=== PATIENT | female | born 1945 | race Caucasian/White ===

== ENCOUNTER 2018-10-02 22:08 | Observation (INO) ==
[2018-10-02] MEDS ORDERED: HYDROmorphone 2 MG/1 ML VIAL IV STA (22:57)
[2018-10-02] MEDS ORDERED: SODIUM CHLORIDE 0.9% 1,000 ML IV STA (22:57)
[2018-10-02] MEDS ORDERED: ONDANSETRON 4 MG/2 ML VIAL IV STA (22:57)
[2018-10-02] MEDS ORDERED: PANTOPRAZOLE 40 MG VIAL IV STA (22:57)
[2018-10-02 23:46] LABS: Basophils % 0.2 % (0.0-0.8); Eosinophils # 0.2 10*3/uL (0.0-0.87); Eosinophils % 2.7 % (0.00-10.9); Hematocrit 25.2 VOL% (35.7-47.0); Hemoglobin 7.6 GM/DL (12.0-16.0); Immature Granulocytes % 0.6 %; Immature Granulocytes Absolute 0.05 #; Lymphocytes # 0.9 10*3/uL (1.4-4.0); Lymphocytes % 10.3 % (21.3-54.2); Mean Corpuscular HGB Conc 30.2 GM/DL (32-36); Mean Corpuscular Volume 89.7 FL (87-102); Mean Platelet Volume 8.8 FL (9.6-12.0); Monocytes % 15.3 % (1.7-12.7); Neutrophils % 70.9 % (38.7-73.9); Platelet Count 645 T/CUMM (130-400); Red Blood Count 2.81 MC/CUMM (3.8-5.5); Red Cell Distribution Width 15.8 % (9.3-17.3)
[2018-10-03 00:27] LABS: Alanine Aminotransferase < 6 U/L (13-56); Albumin 2.4 G/DL (3.4-5.0); Alkaline Phosphatase 105 U/L (45-117); Amylase 13 U/L (25-115); Aspartate Amino Transferase 11 U/L (0-37); Bilirubin,Total < 0.39 MG/DL (0.2-1.0); Blood Urea Nitrogen 5 MG/DL (7-18); Calcium 9.1 MG/DL (8.5-10.1); Glucose 120 MG/DL (74-106); Osmolality,Calculated 270.8 MOS/KG (273-304); Total Protein 6.7 G/DL (6.4-8.3)
[2018-10-03] MEDS ORDERED: POTASSIUM CHLORIDE 20 MEQ TABLET PO STA (00:32)
[2018-10-03] MEDS ORDERED: MAGNESIUM SULF RIDER 2 GM in PREMIX 1 EACH IV STA (00:32)
[2018-10-03 00:44] LABS: Apearance,Urine CLEAR (Clear); Bilirubin,Urine Negative (Negative); Blood, Urine Negative (Negative); Glucose,Urine (UA) Negative (Negative); Ketones,Urine Negative (Negative); Nitrite,Urine Negative (Negative); Protein,Urine Negative; RBC,Urine 3 /HPF (0-4); Squamous Epithelial Cell,Urine Occasional /HPF (0-10); Urine Color Straw (Yellow); Urine Specific Gravity 1.059 (1.001-1.035); Urine Urobilinogen < 2.0 EU/DL (0.2-1.0); WBC,Urine 2 /HPF (0-6)
[2018-10-03] MEDS: SODIUM CHLORIDE 0.9% 1,000 ML IV SCH ×2 (05:29→18:06)
[2018-10-03] MEDS: metroNIDAZOLE INJ 500 MG in PREMIX 1 EACH IV SCH ×4 (05:30→21:03)
[2018-10-03] MEDS: HYDROmorphone 2 MG/1 ML VIAL IV PRN ×2 (06:10→12:47)
[2018-10-03] MEDS: CIPROFLOXACIN INJ 400 MG in PREMIX 1 EACH IV SCH ×2 (06:30→15:56)
[2018-10-03 07:06] LABS: Basophils % 0.1 % (0.0-0.8); Eosinophils # 0.3 10*3/uL (0.0-0.87); Eosinophils % 3.9 % (0.00-10.9); Hematocrit 20.2 VOL% (35.7-47.0); Immature Granulocytes % 0.7 %; Immature Granulocytes Absolute 0.05 #; Lymphocytes # 0.8 10*3/uL (1.4-4.0); Lymphocytes % 10.9 % (21.3-54.2); Mean Corpuscular HGB Conc 31.2 GM/DL (32-36); Mean Corpuscular Volume 88.6 FL (87-102); Mean Platelet Volume 8.8 FL (9.6-12.0); Monocytes % 15.4 % (1.7-12.7); NRBC # 0.02 10*3/uL; Platelet Count 553 T/CUMM (130-400); Red Blood Count 2.28 MC/CUMM (3.8-5.5); Red Cell Distribution Width 15.9 % (9.3-17.3)
[2018-10-03 07:14] LABS: Hemoglobin 6.3 GM/DL (12.0-16.0)
[2018-10-03 07:32] LABS: Hypochromasia 1+; Platelet Estimate Increased
[2018-10-03 07:35] LABS: Alanine Aminotransferase < 6 U/L (13-56); Albumin 2.1 G/DL (3.4-5.0); Alkaline Phosphatase 84 U/L (45-117); Aspartate Amino Transferase 9 U/L (0-37); Bilirubin,Total < 0.39 MG/DL (0.2-1.0); Blood Urea Nitrogen 4 MG/DL (7-18); Calcium 8.1 MG/DL (8.5-10.1); Glucose 113 MG/DL (74-106); Osmolality,Calculated 272.7 MOS/KG (273-304); Total Protein 5.5 G/DL (6.4-8.3)
[2018-10-03] MEDS: PANTOPRAZOLE 40 MG TABLET PO SCH (09:12)
[2018-10-03] MEDS: POTASSIUM CHLORIDE 20 MEQ TABLET PO PRN ×4 (09:14→18:25)
[2018-10-03] MEDS ORDERED: oxyCODONE IR 5 MG TABLET PO PRN (09:19)
[2018-10-03] MEDS ORDERED: diphenhydrAMINE CAP 25 MG CAPSULE PO PRN (09:19)
[2018-10-03] MEDS ORDERED: MAGNESIUM SULF RIDER 2 GM in PREMIX 1 EACH IV PRN (09:22)
[2018-10-03] MEDS ORDERED: MAGNESIUM SULF RIDER 4 GM in PREMIX 1 EACH IV PRN (09:22)
[2018-10-03] MEDS ORDERED: SODIUM CHLORIDE 0.9% 1,000 ML IV PRN (09:23)
[2018-10-03] MEDS ORDERED: ERGOCALCIFEROL 50,000 UNIT CAPSULE PO SCH (09:30)
[2018-10-03 09:47] LABS: % Iron Saturation 12.5 % (18-50); Ferritin 162.3 ng/ml (8-252)
[2018-10-03] MEDS: ONDANSETRON 4 MG/2 ML VIAL IV PRN ×2 (12:47→20:55)
[2018-10-03 20:02] LABS: Hematocrit 29.8 VOL% (35.7-47.0)
[2018-10-03 20:03] LABS: Hemoglobin 9.2 GM/DL (12.0-16.0)
[2018-10-03] MEDS: CARBIDOPA/LEVODOPA 25-250 MG TABLET PO SCH (20:52)
[2018-10-04 01:35] LABS: Basophils % 0.3 % (0.0-0.8); Eosinophils # 0.3 10*3/uL (0.0-0.87); Eosinophils % 2.8 % (0.00-10.9); Hematocrit 27.2 VOL% (35.7-47.0); Hemoglobin 8.7 GM/DL (12.0-16.0); Immature Granulocytes % 3.3 %; Immature Granulocytes Absolute 0.29 #; Lymphocytes # 0.7 10*3/uL (1.4-4.0); Mean Corpuscular Volume 85.3 FL (87-102); Mean Platelet Volume 9.1 FL (9.6-12.0); Monocytes % 15.1 % (1.7-12.7); NRBC # 0.03 10*3/uL; Neutrophils % 70.5 % (38.7-73.9); Platelet Count 590 T/CUMM (130-400); Red Blood Count 3.19 MC/CUMM (3.8-5.5); Red Cell Distribution Width 17.7 % (9.3-17.3); White Blood Count 8.9 T/CUMM (4-12)
[2018-10-04 01:55] LABS: Calcium 8.2 MG/DL (8.5-10.1); Osmolality,Calculated 276.4 MOS/KG (273-304)
[2018-10-04] MEDS: CIPROFLOXACIN INJ 400 MG in PREMIX 1 EACH IV SCH ×2 (03:28→15:45)
[2018-10-04] MEDS: SODIUM CHLORIDE 0.9% 1,000 ML IV SCH ×3 (03:29→21:36)
[2018-10-04] MEDS: metroNIDAZOLE INJ 500 MG in PREMIX 1 EACH IV SCH ×4 (05:32→23:15)
[2018-10-04] MEDS: CARBIDOPA/LEVODOPA 25-250 MG TABLET PO SCH ×3 (09:16→21:38)
[2018-10-04] MEDS: BISACODYL 5 MG TABLET PO SCH ×2 (09:16→16:36)
[2018-10-04] MEDS: PANTOPRAZOLE 40 MG TABLET PO SCH (09:16)
[2018-10-04] MEDS: ESTRADIOL 2 MG TABLET PO SCH (09:16)
[2018-10-04] MEDS: SUCRALFATE 1 GM TABLET PO SCH (09:16)
[2018-10-04] MEDS ORDERED: PROPOFOL 200 MG/20 ML VIAL IV ONE ×2 (10:00)
[2018-10-04] MEDS ORDERED: LIDOCAINE 2% 5 ML VIAL ONE ×2 (10:00)
[2018-10-04] MEDS: METOCLOPRAMIDE 10 MG/2 ML VIAL IV SCH ×3 (13:17→23:14)
[2018-10-04 16:58] LABS: Hematocrit 27.9 VOL% (35.7-47.0); Hemoglobin 8.7 GM/DL (12.0-16.0)
[2018-10-04] MEDS ORDERED: POLYETHYLENE GLYCOL POWDER 255 GM BOTTLE PO ONE (18:00)
[2018-10-04] MEDS ORDERED: MAGNESIUM CITRATE 300 ML BOTTLE PO ONE (21:00)
[2018-10-04 22:46] LABS: Calcium 8.3 MG/DL (8.5-10.1); Osmolality,Calculated 275.4 MOS/KG (273-304)
[2018-10-04] MEDS ORDERED: POTASSIUM CHLORIDE RIDER 10 MEQ in PREMIX 1 EACH IV PRN (23:53)
[2018-10-05] MEDS: BISACODYL 5 MG TABLET PO SCH
[2018-10-05] MEDS: POTASSIUM CHLORIDE 20 MEQ TABLET PO PRN (00:19)
[2018-10-05] MEDS: POTASSIUM CHLORIDE RIDER 10 MEQ in PREMIX 1 EACH IV PRN ×5 (00:19→04:24)
[2018-10-05 01:30] LABS: Basophils % 0.5 % (0.0-0.8); Eosinophils # 0.2 10*3/uL (0.0-0.87); Eosinophils % 2.1 % (0.00-10.9); Hematocrit 27.1 VOL% (35.7-47.0); Hemoglobin 8.5 GM/DL (12.0-16.0); Immature Granulocytes % 2.1 %; Immature Granulocytes Absolute 0.18 #; Lymphocytes # 0.7 10*3/uL (1.4-4.0); Lymphocytes % 7.9 % (21.3-54.2); Mean Corpuscular HGB Conc 31.4 GM/DL (32-36); Mean Corpuscular Volume 85.5 FL (87-102); Monocytes % 13.6 % (1.7-12.7); NRBC # 0.02 10*3/uL; Neutrophils % 73.8 % (38.7-73.9); Platelet Count 541 T/CUMM (130-400); Red Blood Count 3.17 MC/CUMM (3.8-5.5); Red Cell Distribution Width 18.2 % (9.3-17.3); White Blood Count 8.4 T/CUMM (4-12)
[2018-10-05] MEDS: CIPROFLOXACIN INJ 400 MG in PREMIX 1 EACH IV SCH (04:12)
[2018-10-05] MEDS: SODIUM CHLORIDE 0.9% 1,000 ML IV SCH ×3 (05:24→16:50)
[2018-10-05] MEDS: metroNIDAZOLE INJ 500 MG in PREMIX 1 EACH IV SCH ×3 (05:50→16:25)
[2018-10-05] MEDS: METOCLOPRAMIDE 10 MG/2 ML VIAL IV SCH (05:59)
[2018-10-05 07:34] LABS: Hematocrit 30.7 VOL% (35.7-47.0); Hemoglobin 9.7 GM/DL (12.0-16.0)
[2018-10-05] MEDS ORDERED: PROPOFOL 200 MG/20 ML VIAL IV ONE (09:00)
[2018-10-05] MEDS ORDERED: LIDOCAINE 1% 5 ML VIAL ONE (09:00)
[2018-10-05] MEDS ORDERED: ONDANSETRON 4 MG/2 ML VIAL ONE (09:00)
[2018-10-05] MEDS: PANTOPRAZOLE 40 MG TABLET PO SCH (10:22)
[2018-10-05] MEDS: SUCRALFATE 1 GM TABLET PO SCH (10:22)
[2018-10-05] MEDS: CARBIDOPA/LEVODOPA 25-250 MG TABLET PO SCH (10:22)
[2018-10-05] MEDS: RIFAXIMIN 550 MG TABLET PO SCH ×2 (10:22→15:05)
[2018-10-05] MEDS: ESTRADIOL 2 MG TABLET PO SCH (10:23)
[2018-10-05 11:57] VITALS: BP 125/61
== END 2018-10-05 16:50 | disposition home or self-care (01) ==
LOC: N.EDINP 22:08 → N.ED 22:08 → N.4E 10-03 03:51
PROVIDERS: ADMIT Internal Medicine; ATTEND Internal Medicine
PROC: COLONBX (2018-10-05 08:35)

== ENCOUNTER 2019-03-11 14:33 | Inpatient (IN) ==
[2019-03-11] MEDS ORDERED: SODIUM CHLORIDE 0.9% 500 ML IV STA (16:27)
[2019-03-11 17:38] LABS: Basophils % 0.3 % (0.0-0.8); Eosinophils % 0.1 % (0.00-10.9); Hematocrit 28.4 VOL% (35.7-47.0); Hemoglobin 8.8 GM/DL (12.0-16.0); Immature Granulocytes % 0.7 %; Immature Granulocytes Absolute 0.05 #; Lymphocytes # 0.8 10*3/uL (1.4-4.0); Lymphocytes % 10.8 % (21.3-54.2); Mean Corpuscular Volume 94.4 FL (87-102); Mean Platelet Volume 8.5 FL (9.6-12.0); Monocytes % 10.9 % (1.7-12.7); Neutrophils % 77.2 % (38.7-73.9); Platelet Count 688 T/CUMM (130-400); Red Blood Count 3.01 MC/CUMM (3.8-5.5); Red Cell Distribution Width 15.9 % (9.3-17.3)
[2019-03-11 18:02] LABS: Alanine Aminotransferase < 9 U/L (13-56); Alkaline Phosphatase 127 U/L (45-117); Aspartate Amino Transferase 19 U/L (0-37); Bilirubin,Total < 0.39 MG/DL (0.2-1.0); Blood Urea Nitrogen 21 MG/DL (7-18); Calcium 8.4 MG/DL (8.5-10.1); Estimated Glom Filtration Rate 62 ML/MIN; Glucose 81 MG/DL (74-106); Total Protein 5.8 G/DL (6.4-8.3)
[2019-03-11 18:28] LABS: Apearance,Urine Slightly Hazy (Clear); Bacteria,Urine Occasional /HPF (Few); Bilirubin,Urine Negative (Negative); Blood, Urine Small mg/dL (Negative); Glucose,Urine (UA) Negative (Negative); Hyaline Casts,Urine 13 /LPF (0-3); Ketones,Urine 5 mg/dL (Negative); Mucus,Urine Occasional /LPF (Occasional); Nitrite,Urine Negative (Negative); Protein,Urine Negative; RBC,Urine 5 /HPF (0-4); Squamous Epithelial Cell,Urine Occasional /HPF (0-10); Urine Color Amber (Yellow); Urine Specific Gravity 1.018 (1.001-1.035); Urine Urobilinogen < 2.0 EU/DL (0.2-1.0); WBC,Urine 36 /HPF (0-6)
[2019-03-11] MEDS ORDERED: LEVOFLOXACIN INJ 750 MG in PREMIX 1 EACH IV STA (18:47)
[2019-03-11] MEDS ORDERED: LEVOFLOXACIN INJ 150 ML IV ONE (19:20)
[2019-03-11] MEDS: DEXTROSE 5% NACL 0.45% 1,000 ML IV SCH (21:56)
[2019-03-11] MEDS: ONDANSETRON 4 MG/2 ML VIAL IV PRN (21:57)
[2019-03-11] MEDS: HYDROmorphone 2 MG/1 ML VIAL IV PRN (21:57)
[2019-03-11] MEDS: PANTOPRAZOLE 40 MG VIAL IV SCH (21:57)
[2019-03-11] MEDS: ENOXAPARIN 40 MG/0.4 ML SYRINGE SUBCUT SCH (21:58)
[2019-03-12 06:11] LABS: Basophils % 0.6 % (0.0-0.8); Eosinophils # 0.1 10*3/uL (0.0-0.87); Eosinophils % 0.9 % (0.00-10.9); Hematocrit 26.1 VOL% (35.7-47.0); Immature Granulocytes % 0.6 %; Immature Granulocytes Absolute 0.04 #; Lymphocytes # 0.9 10*3/uL (1.4-4.0); Mean Corpuscular HGB Conc 30.7 GM/DL (32-36); Mean Platelet Volume 8.7 FL (9.6-12.0); Monocytes % 16.9 % (1.7-12.7); Platelet Count 628 T/CUMM (130-400); Red Blood Count 2.69 MC/CUMM (3.8-5.5); Red Cell Distribution Width 15.9 % (9.3-17.3); White Blood Count 6.6 T/CUMM (4-12)
[2019-03-12 06:21] LABS: Alanine Aminotransferase 11 U/L (13-56); Albumin 1.8 G/DL (3.4-5.0); Alkaline Phosphatase 107 U/L (45-117); Aspartate Amino Transferase 20 U/L (0-37); Bilirubin,Total < 0.39 MG/DL (0.2-1.0); Blood Urea Nitrogen 18 MG/DL (7-18); Estimated Glom Filtration Rate 73 ML/MIN; Glucose 84 MG/DL (74-106); Osmolality,Calculated 275.7 MOS/KG (273-304); Total Protein 5.4 G/DL (6.4-8.3)
[2019-03-12 06:22] LABS: Ferritin 309.7 ng/ml (8-252)
[2019-03-12 06:29] LABS: Carcinoembryonic Antigen 64.2 NG/ML (0.0-5.0); Folate 10.4 NG/ML (5.4-24.0); Vitamin B12 1054 PG/ML (211-911)
[2019-03-12 06:37] LABS: Eosinophils 1 % (0-10); Hypochromasia 1+; Lymphocytes 6 % (20-55); Ovalocytes Slight; Platelet Estimate Increased; Segmented Neutrophils 83 % (50-85); Total Cells Counted 100
[2019-03-12] MEDS: ONDANSETRON 4 MG/2 ML VIAL IV PRN ×2 (07:09→16:05)
[2019-03-12] MEDS ORDERED: MAGNESIUM SULF RIDER 4 GM in PREMIX 1 EACH IV ONE (07:47)
[2019-03-12 08:24] LABS: Sedimentation Rate-Westergren 40 MM/HR (0-30)
[2019-03-12] MEDS: DEXTROSE 5% NACL 0.45% 1,000 ML IV SCH (08:52)
[2019-03-12] MEDS: PANTOPRAZOLE 40 MG VIAL IV SCH ×2 (08:54→21:53)
[2019-03-12] MEDS ORDERED: IRON SUCROSE 300 MG in SODIUM CHLORIDE 0.9% 100 ML IV ONE (09:11)
[2019-03-12 09:44] LABS: Hemoglobin A1 (Alkaline) 97.8 % (96.5-98.5); Hemoglobin A2 (Alkaline) 2.2 % (1.5-3.5)
[2019-03-12] MEDS: HYDROmorphone 2 MG/1 ML VIAL IV PRN ×2 (13:20→23:15)
[2019-03-12] MEDS: LEVOFLOXACIN INJ 500 MG in PREMIX 1 EACH IV SCH (21:53)
[2019-03-12] MEDS: ENOXAPARIN 40 MG/0.4 ML SYRINGE SUBCUT SCH (21:59)
[2019-03-13] MEDS: DEXTROSE 5% NACL 0.45% 1,000 ML IV SCH ×2 (00:13→02:09)
[2019-03-13 03:50] LABS: Basophils % 0.2 % (0.0-0.8); Eosinophils % 0.3 % (0.00-10.9); Hemoglobin 7.5 GM/DL (12.0-16.0); Immature Granulocytes % 0.4 %; Immature Granulocytes Absolute 0.04 #; Lymphocytes # 0.8 10*3/uL (1.4-4.0); Lymphocytes % 8.4 % (21.3-54.2); Mean Corpuscular HGB Conc 31.3 GM/DL (32-36); Mean Corpuscular Volume 94.5 FL (87-102); Mean Platelet Volume 8.8 FL (9.6-12.0); Monocytes % 10.4 % (1.7-12.7); Neutrophils % 80.3 % (38.7-73.9); Platelet Count 574 T/CUMM (130-400); Red Blood Count 2.54 MC/CUMM (3.8-5.5); Red Cell Distribution Width 16.1 % (9.3-17.3); White Blood Count 9.5 T/CUMM (4-12)
[2019-03-13 04:17] LABS: Calcium 7.8 MG/DL (8.5-10.1); Osmolality,Calculated 278.7 MOS/KG (273-304)
[2019-03-13 04:22] LABS: Albumin 1.9 G/DL (3.4-5.0); Bilirubin,Total 0.7 MG/DL (0.2-1.0); Calcium 6.5 MG/DL (8.5-10.1); Osmolality,Calculated 277.7 MOS/KG (273-304); Total Protein 5.3 G/DL (6.4-8.3)
[2019-03-13] MEDS ORDERED: SODIUM CHLORIDE 0.9% 1,000 ML IV PRN (06:17)
[2019-03-13] MEDS: ONDANSETRON 4 MG/2 ML VIAL IV PRN (07:37)
[2019-03-13] MEDS: PANTOPRAZOLE 40 MG VIAL IV SCH ×2 (09:44→21:25)
[2019-03-13] MEDS: HYDROmorphone 2 MG/1 ML VIAL IV PRN ×2 (13:04→21:38)
[2019-03-13] MEDS: MULTIVITAMIN INJ 10 ML, TRACE ELEMENTS (5) 1 ML in AMINO ACIDS/DEXT/LYTES 4.25-5% 2,000 ML IV SCH (17:51)
[2019-03-13] MEDS: FAT EMULSION 20% 250 ML IV SCH (17:51)
[2019-03-13] MEDS: LEVOFLOXACIN INJ 500 MG in PREMIX 1 EACH IV SCH (21:28)
[2019-03-14] MEDS: ENOXAPARIN 40 MG/0.4 ML SYRINGE SUBCUT SCH ×2 (01:02→21:36)
[2019-03-14 04:44] LABS: Basophils % 0.2 % (0.0-0.8); Eosinophils # 0.1 10*3/uL (0.0-0.87); Eosinophils % 1.3 % (0.00-10.9); Hematocrit 33.2 VOL% (35.7-47.0); Hemoglobin 10.8 GM/DL (12.0-16.0); Immature Granulocytes % 0.5 %; Immature Granulocytes Absolute 0.04 #; Lymphocytes # 0.7 10*3/uL (1.4-4.0); Lymphocytes % 8.2 % (21.3-54.2); Mean Corpuscular HGB Conc 32.5 GM/DL (32-36); Mean Corpuscular Volume 91.2 FL (87-102); Mean Platelet Volume 8.5 FL (9.6-12.0); Monocytes % 10.5 % (1.7-12.7); NRBC # 0.02 10*3/uL; Neutrophils % 79.3 % (38.7-73.9); Platelet Count 396 T/CUMM (130-400); Red Blood Count 3.64 MC/CUMM (3.8-5.5); Red Cell Distribution Width 15.4 % (9.3-17.3); White Blood Count 8.6 T/CUMM (4-12)
[2019-03-14 05:15] LABS: Alanine Aminotransferase < 9 U/L (13-56); Albumin 1.7 G/DL (3.4-5.0); Alkaline Phosphatase 99 U/L (45-117); Aspartate Amino Transferase 17 U/L (0-37); Blood Urea Nitrogen 13 MG/DL (7-18); Calcium 8.2 MG/DL (8.5-10.1); Estimated Glom Filtration Rate 77 ML/MIN; Glucose 79 MG/DL (74-106); Osmolality,Calculated 275.5 MOS/KG (273-304)
[2019-03-14] MEDS: POTASSIUM CHLORIDE RIDER 10 MEQ in PREMIX 1 EACH IV SCH ×5 (08:46→15:11)
[2019-03-14] MEDS: PANTOPRAZOLE 40 MG VIAL IV SCH ×2 (08:46→21:37)
[2019-03-14] MEDS: DEXT 5% NACL 0.45% KCL 40 MEQ 40 MEQ/1,000 ML BAG IV SCH (08:46)
[2019-03-14] MEDS: DEXTROSE 5% NACL 0.45% 1,000 ML IV SCH (10:00)
[2019-03-14] MEDS: MULTIVITAMIN INJ 10 ML, TRACE ELEMENTS (5) 1 ML in AMINO ACIDS/DEXT/LYTES 4.25-5% 2,000 ML IV SCH (17:28)
[2019-03-14] MEDS: HYDROmorphone 2 MG/1 ML VIAL IV PRN (18:09)
[2019-03-14] MEDS: LEVOFLOXACIN INJ 500 MG in PREMIX 1 EACH IV SCH (20:59)
[2019-03-15] MEDS: HYDROmorphone 2 MG/1 ML VIAL IV PRN ×4 (02:00→21:30)
[2019-03-15 05:27] LABS: Basophils % 0.2 % (0.0-0.8); Eosinophils # 0.1 10*3/uL (0.0-0.87); Eosinophils % 0.9 % (0.00-10.9); Hematocrit 36.5 VOL% (35.7-47.0); Hemoglobin 11.5 GM/DL (12.0-16.0); Immature Granulocytes % 0.8 %; Immature Granulocytes Absolute 0.07 #; Lymphocytes # 0.8 10*3/uL (1.4-4.0); Lymphocytes % 9.1 % (21.3-54.2); Mean Corpuscular HGB Conc 31.5 GM/DL (32-36); Mean Corpuscular Volume 93.6 FL (87-102); Mean Platelet Volume 8.7 FL (9.6-12.0); Monocytes % 10.1 % (1.7-12.7); Neutrophils % 78.9 % (38.7-73.9); Platelet Count 408 T/CUMM (130-400); Red Cell Distribution Width 15.5 % (9.3-17.3); White Blood Count 9.1 T/CUMM (4-12)
[2019-03-15 05:55] LABS: Albumin 1.8 G/DL (3.4-5.0); Bilirubin,Total 0.6 MG/DL (0.2-1.0); Calcium 8.4 MG/DL (8.5-10.1); Total Protein 5.4 G/DL (6.4-8.3)
[2019-03-15 06:08] LABS: Calcium 8.5 MG/DL (8.5-10.1); Osmolality,Calculated 268.2 MOS/KG (273-304); Prealbumin 5.3 MG/DL (20-40)
[2019-03-15] MEDS: DEXT 5% NACL 0.45% KCL 40 MEQ 40 MEQ/1,000 ML BAG IV SCH ×2 (09:11→09:20)
[2019-03-15] MEDS: FAT EMULSION 20% 250 ML IV SCH ×2 (09:18→15:27)
[2019-03-15] MEDS: PANTOPRAZOLE 40 MG VIAL IV SCH ×2 (09:19→21:26)
[2019-03-15] MEDS ORDERED: MAGNESIUM SULF RIDER 2 GM in PREMIX 1 EACH IV ONE (10:23)
[2019-03-15] MEDS: TRACE ELEMENTS (5) 1 ML, MULTIVITAMIN INJ 10 ML in AMINO ACIDS/DEXT/LYTES 5-15% 2,000 ML IV SCH ×2 (15:29→16:14)
[2019-03-15] MEDS ORDERED: fentaNYL 12 MCG/HR PATCH TRANSDERM SCH (16:00)
[2019-03-15] MEDS: ONDANSETRON 4 MG/2 ML VIAL IV PRN (21:30)
[2019-03-15] MEDS: ENOXAPARIN 40 MG/0.4 ML SYRINGE SUBCUT SCH (21:33)
[2019-03-15] MEDS: LEVOFLOXACIN INJ 500 MG in PREMIX 1 EACH IV SCH (21:34)
[2019-03-16 07:01] LABS: Basophils % 0.2 % (0.0-0.8); Eosinophils # 0.1 10*3/uL (0.0-0.87); Eosinophils % 0.7 % (0.00-10.9); Hematocrit 33.8 VOL% (35.7-47.0); Hemoglobin 10.7 GM/DL (12.0-16.0); Immature Granulocytes % 0.6 %; Immature Granulocytes Absolute 0.05 #; Lymphocytes # 0.6 10*3/uL (1.4-4.0); Lymphocytes % 7.5 % (21.3-54.2); Mean Corpuscular HGB Conc 31.7 GM/DL (32-36); Mean Corpuscular Volume 93.1 FL (87-102); Mean Platelet Volume 8.8 FL (9.6-12.0); Monocytes % 15.1 % (1.7-12.7); Neutrophils % 75.9 % (38.7-73.9); Platelet Count 337 T/CUMM (130-400); Red Blood Count 3.63 MC/CUMM (3.8-5.5); Red Cell Distribution Width 15.3 % (9.3-17.3); White Blood Count 8.2 T/CUMM (4-12)
[2019-03-16 07:26] LABS: Alanine Aminotransferase < 6 U/L (13-56); Albumin 1.5 G/DL (3.4-5.0); Alkaline Phosphatase 86 U/L (45-117); Aspartate Amino Transferase 14 U/L (0-37); Bilirubin,Total < 0.39 MG/DL (0.2-1.0); Blood Urea Nitrogen 18 MG/DL (7-18); Calcium 8.2 MG/DL (8.5-10.1); Estimated Glom Filtration Rate 82 ML/MIN; Glucose 127 MG/DL (74-106); Osmolality,Calculated 271.2 MOS/KG (273-304)
[2019-03-16] MEDS: HYDROmorphone 2 MG/1 ML VIAL IV PRN ×3 (08:13→21:10)
[2019-03-16] MEDS ORDERED: LORazepam 2 MG/1 ML VIAL IV ONE (08:49)
[2019-03-16] MEDS ORDERED: LORazepam 2 MG/1 ML VIAL IV PRN ×2 (08:49→16:29)
[2019-03-16] MEDS: DEXT 5% NACL 0.45% KCL 40 MEQ 40 MEQ/1,000 ML BAG IV SCH ×2 (09:09→14:05)
[2019-03-16] MEDS: PANTOPRAZOLE 40 MG VIAL IV SCH ×2 (09:13→20:50)
[2019-03-16] MEDS: FAT EMULSION 20% 250 ML IV SCH (13:43)
[2019-03-16] MEDS: TRACE ELEMENTS (5) 1 ML, MULTIVITAMIN INJ 10 ML in AMINO ACIDS/DEXT/LYTES 5-15% 2,000 ML IV SCH (16:20)
[2019-03-16] MEDS: LEVOFLOXACIN INJ 500 MG in PREMIX 1 EACH IV SCH (20:49)
[2019-03-16] MEDS: ENOXAPARIN 40 MG/0.4 ML SYRINGE SUBCUT SCH (21:09)
[2019-03-17] MEDS: HYDROmorphone 2 MG/1 ML VIAL IV PRN ×3 (02:41→21:28)
[2019-03-17 06:05] LABS: Basophils % 0.3 % (0.0-0.8); Eosinophils # 0.1 10*3/uL (0.0-0.87); Eosinophils % 0.7 % (0.00-10.9); Hematocrit 33.4 VOL% (35.7-47.0); Hemoglobin 10.6 GM/DL (12.0-16.0); Immature Granulocytes % 0.9 %; Immature Granulocytes Absolute 0.08 #; Lymphocytes # 0.7 10*3/uL (1.4-4.0); Lymphocytes % 7.1 % (21.3-54.2); Mean Corpuscular HGB Conc 31.7 GM/DL (32-36); Mean Corpuscular Volume 94.9 FL (87-102); Mean Platelet Volume 9.6 FL (9.6-12.0); Platelet Count 211 T/CUMM (130-400); Red Blood Count 3.52 MC/CUMM (3.8-5.5); Red Cell Distribution Width 15.2 % (9.3-17.3); White Blood Count 9.2 T/CUMM (4-12)
[2019-03-17 06:56] LABS: Total Cells Counted 100
[2019-03-17 06:59] LABS: Eosinophils 2 % (0-10); Lymphocytes 10 % (20-55); Platelet Estimate Normal; Segmented Neutrophils 73 % (50-85)
[2019-03-17 07:00] LABS: Hypochromasia Slight
[2019-03-17 07:02] LABS: Alkaline Phosphatase 87 U/L (45-117); Calcium 7.9 MG/DL (8.5-10.1)
[2019-03-17 07:03] LABS: Alanine Aminotransferase < 9 U/L (13-56); Albumin 1.5 G/DL (3.4-5.0); Aspartate Amino Transferase 16 U/L (0-37); Bilirubin,Total < 0.39 MG/DL (0.2-1.0); Blood Urea Nitrogen 19 MG/DL (7-18); Estimated Glom Filtration Rate 80 ML/MIN; Total Protein 4.9 G/DL (6.4-8.3)
[2019-03-17 07:04] LABS: Glucose 136 MG/DL (74-106); Osmolality,Calculated 273.1 MOS/KG (273-304)
[2019-03-17] MEDS ORDERED: MAGNESIUM SULF RIDER 2 GM in PREMIX 1 EACH IV ONE (08:07)
[2019-03-17] MEDS: DEXT 5% NACL 0.45% KCL 40 MEQ 40 MEQ/1,000 ML BAG IV SCH (09:30)
[2019-03-17] MEDS: PANTOPRAZOLE 40 MG VIAL IV SCH ×2 (09:33→21:26)
[2019-03-17] MEDS: KETOROLAC 30 MG/1 ML VIAL IV SCH ×2 (12:20→18:47)
[2019-03-17] MEDS: fentaNYL 25 MCG/HR PATCH TRANSDERM SCH (13:58)
[2019-03-17] MEDS: FAT EMULSION 20% 250 ML IV SCH (13:59)
[2019-03-17] MEDS: TRACE ELEMENTS (5) 1 ML, MULTIVITAMIN INJ 10 ML in AMINO ACIDS/DEXT/LYTES 5-15% 2,000 ML IV SCH (17:25)
[2019-03-17] MEDS: LEVOFLOXACIN INJ 500 MG in PREMIX 1 EACH IV SCH (21:25)
[2019-03-17] MEDS: ENOXAPARIN 40 MG/0.4 ML SYRINGE SUBCUT SCH (21:45)
[2019-03-18] MEDS: KETOROLAC 30 MG/1 ML VIAL IV SCH ×4 (00:12→18:01)
[2019-03-18] MEDS: DEXT 5% NACL 0.45% KCL 40 MEQ 40 MEQ/1,000 ML BAG IV SCH ×3 (00:19→18:02)
[2019-03-18 06:02] LABS: Basophils % 0.4 % (0.0-0.8); Eosinophils # 0.1 10*3/uL (0.0-0.87); Eosinophils % 1.6 % (0.00-10.9); Hematocrit 30.3 VOL% (35.7-47.0); Hemoglobin 9.7 GM/DL (12.0-16.0); Immature Granulocytes % 1.6 %; Immature Granulocytes Absolute 0.12 #; Lymphocytes # 0.5 10*3/uL (1.4-4.0); Lymphocytes % 7.2 % (21.3-54.2); Mean Corpuscular Volume 93.2 FL (87-102); Monocytes % 19.7 % (1.7-12.7); Neutrophils % 69.5 % (38.7-73.9); Platelet Count 267 T/CUMM (130-400); Red Blood Count 3.25 MC/CUMM (3.8-5.5); Red Cell Distribution Width 15.1 % (9.3-17.3); White Blood Count 7.5 T/CUMM (4-12)
[2019-03-18 06:14] LABS: Calcium 8.1 MG/DL (8.5-10.1); Osmolality,Calculated 267.7 MOS/KG (273-304)
[2019-03-18 06:29] LABS: Eosinophils 3 % (0-10); Lymphocytes 12 % (20-55); Platelet Estimate Normal; Segmented Neutrophils 67 % (50-85); Total Cells Counted 100
[2019-03-18] MEDS: PANTOPRAZOLE 40 MG VIAL IV SCH ×2 (09:35→21:00)
[2019-03-18] MEDS: FAT EMULSION 20% 250 ML IV SCH (13:45)
[2019-03-18] MEDS: HYDROmorphone 2 MG/1 ML VIAL IV PRN (14:35)
[2019-03-18] MEDS ORDERED: diphenhydrAMINE CAP 25 MG CAPSULE PO ONE (17:36)
[2019-03-18] MEDS: ENOXAPARIN 40 MG/0.4 ML SYRINGE SUBCUT SCH (20:26)
[2019-03-18] MEDS: TRACE ELEMENTS (5) 1 ML, MULTIVITAMIN INJ 10 ML in AMINO ACIDS/DEXT/LYTES 5-15% 2,000 ML IV SCH (20:59)
[2019-03-18] MEDS: LEVOFLOXACIN INJ 500 MG in PREMIX 1 EACH IV SCH (20:59)
[2019-03-19] MEDS: HYDROmorphone 2 MG/1 ML VIAL IV PRN ×2 (03:01→21:31)
[2019-03-19 06:44] LABS: Calcium 8.3 MG/DL (8.5-10.1); Osmolality,Calculated 276.1 MOS/KG (273-304)
[2019-03-19] MEDS: PANTOPRAZOLE 40 MG VIAL IV SCH ×2 (08:45→20:21)
[2019-03-19] MEDS ORDERED: PHENOL 1.4% THROAT SPRAY 177 ML BOTTLE PO PRN (09:45)
[2019-03-19] MEDS: METOCLOPRAMIDE 10 MG/2 ML VIAL IV SCH ×3 (12:15→23:25)
[2019-03-19] MEDS: FAT EMULSION 20% 250 ML IV SCH (14:00)
[2019-03-19] MEDS: TRACE ELEMENTS (5) 1 ML, MULTIVITAMIN INJ 10 ML in AMINO ACIDS/DEXT/LYTES 5-15% 2,000 ML IV SCH (17:36)
[2019-03-19] MEDS: ONDANSETRON 4 MG/2 ML VIAL IV PRN (19:13)
[2019-03-19] MEDS: ALUMINUM/MAGNES/SIMETH MAX STR 30 ML UDCUP PO PRN (19:20)
[2019-03-19] MEDS: ENOXAPARIN 40 MG/0.4 ML SYRINGE SUBCUT SCH (20:19)
[2019-03-19] MEDS: POLYETHYLENE GLYCOL POWDER 17 GM PACK PO SCH (20:20)
[2019-03-19] MEDS: DOCUSATE SODIUM 100 MG CAPSULE PO SCH (20:21)
[2019-03-19] MEDS: LEVOFLOXACIN INJ 500 MG in PREMIX 1 EACH IV SCH (20:22)
[2019-03-20] MEDS: HYDROmorphone 2 MG/1 ML VIAL IV PRN ×3 (02:54→20:47)
[2019-03-20] MEDS: METOCLOPRAMIDE 10 MG/2 ML VIAL IV SCH ×2 (06:08→11:52)
[2019-03-20 08:25] LABS: Basophils % 0.4 % (0.0-0.8); Eosinophils # 0.1 10*3/uL (0.0-0.87); Eosinophils % 0.7 % (0.00-10.9); Hematocrit 30.2 VOL% (35.7-47.0); Hemoglobin 9.6 GM/DL (12.0-16.0); Immature Granulocytes % 1.3 %; Immature Granulocytes Absolute 0.09 #; Lymphocytes # 0.6 10*3/uL (1.4-4.0); Lymphocytes % 9.1 % (21.3-54.2); Mean Corpuscular HGB Conc 31.8 GM/DL (32-36); Mean Corpuscular Volume 92.9 FL (87-102); Mean Platelet Volume 9.9 FL (9.6-12.0); Monocytes % 17.5 % (1.7-12.7); Platelet Count 277 T/CUMM (130-400); Red Blood Count 3.25 MC/CUMM (3.8-5.5); Red Cell Distribution Width 15.1 % (9.3-17.3)
[2019-03-20 08:50] LABS: Calcium 8.4 MG/DL (8.5-10.1)
[2019-03-20 09:00] LABS: Hypochromasia 1+; Lymphocytes 19 % (20-55); Platelet Estimate Adequate; Segmented Neutrophils 62 % (50-85); Total Cells Counted 100
[2019-03-20] MEDS: fentaNYL 25 MCG/HR PATCH TRANSDERM SCH (10:05)
[2019-03-20] MEDS: PANTOPRAZOLE 40 MG VIAL IV SCH (10:05)
[2019-03-20] MEDS: DOCUSATE SODIUM 100 MG CAPSULE PO SCH (10:05)
[2019-03-20] MEDS: POLYETHYLENE GLYCOL POWDER 17 GM PACK PO SCH ×2 (10:08→20:40)
[2019-03-20] MEDS: FAT EMULSION 20% 250 ML IV SCH (15:09)
[2019-03-20] MEDS ORDERED: TRACE ELEMENTS (5) 1 ML, MULTIVITAMIN INJ 10 ML, MAGNESIUM SULF INJ 2 GM in AMINO ACIDS... IV SCH (17:00)
[2019-03-20] MEDS: PANTOPRAZOLE 40 MG TABLET PO SCH (18:11)
[2019-03-20] MEDS: ENOXAPARIN 40 MG/0.4 ML SYRINGE SUBCUT SCH (20:40)
[2019-03-20] MEDS: METOCLOPRAMIDE 10 MG/10 ML UDCUP PO SCH (20:47)
[2019-03-21] MEDS: ALUMINUM/MAGNES/SIMETH MAX STR 30 ML UDCUP PO PRN (02:12)
[2019-03-21] MEDS: HYDROmorphone 2 MG/1 ML VIAL IV PRN (03:29)
[2019-03-21 05:23] LABS: Basophils % 0.2 % (0.0-0.8); Eosinophils # 0.1 10*3/uL (0.0-0.87); Eosinophils % 0.5 % (0.00-10.9); Hematocrit 29.9 VOL% (35.7-47.0); Hemoglobin 9.5 GM/DL (12.0-16.0); Immature Granulocytes % 0.9 %; Lymphocytes # 0.6 10*3/uL (1.4-4.0); Lymphocytes % 5.3 % (21.3-54.2); Mean Corpuscular HGB Conc 31.8 GM/DL (32-36); Mean Corpuscular Volume 92.3 FL (87-102); Mean Platelet Volume 9.6 FL (9.6-12.0); Monocytes % 13.2 % (1.7-12.7); Neutrophils % 79.9 % (38.7-73.9); Platelet Count 324 T/CUMM (130-400); Red Blood Count 3.24 MC/CUMM (3.8-5.5)
[2019-03-21 05:42] LABS: Calcium 8.5 MG/DL (8.5-10.1)
[2019-03-21] MEDS: PANTOPRAZOLE 40 MG TABLET PO SCH (06:14)
[2019-03-21] MEDS: METOCLOPRAMIDE 10 MG/10 ML UDCUP PO SCH ×2 (08:17→12:31)
[2019-03-21] MEDS: POLYETHYLENE GLYCOL POWDER 17 GM PACK PO SCH (08:18)
[2019-03-21] MEDS ORDERED: SIMETHICONE CHEW 80 MG TABLET PO PRN (09:37)
[2019-03-21 13:01] VITALS: BP 119/80
[2019-03-21] MEDS ORDERED: HEPARIN LOCK FLUSH 500 UNIT/5 ML SYRINGE IV ONE (13:18)
== END 2019-03-21 14:45 | disposition home or self-care (01) | DRG 389 ==
LOC: N.ED 14:33 → N.EDINP 19:13 → N.4E 20:57
PROVIDERS: ADMIT Hospitalist; ATTEND Hospitalist
PROC: IRGITIN (2019-03-13 00:50)